=== PATIENT | female | born 1960 | race Caucasian/White ===

== ENCOUNTER 2016-11-02 14:54 | Emergency (ER) ==
[2016-11-02 15:05] VITALS: BP 117/64
--- NOTE | 2016-11-02 15:35 | PROVIDER DOCUMENTATION ---
HPI-Rash/Wound/ReCheck - General Chief Complaint: Suture/Staple Removal Stated Complaint: SUTURE REMOVAL Time Seen by Provider: 11/02/16 15:27 Source: patient Allergies/Adverse Reactions: Allergies Allergy/AdvReac Type Severity Reaction Status Date / Time morphine Allergy VOMITING Verified 07/01/16 10:01 Home Medications: Home Medication List Medication Instructions Recorded Confirmed Last Taken Type Aspirin/Caffeine [Bc Powder Packet] 1 each PO PRN PRN 07/01/16 07/01/16 05:00 History Dapagliflozin Propanediol [Farxiga] 10 mg PO DAILY 07/01/16 07/01/16 07/01/16 05 :00 History 10 Irbesartan/Hydrochlorothiazide 2 each PO DAILY 07/01/16 07/01/16 07/01/16 05:00 History [Avalide 150-12.5 mg Tablet] Omeprazole [Prilosec] 40 mg PO BID 07/01/16 07/01/16 07/01/16 05:00 History Cephalexin [Keflex] 500 mg PO Q6HR #28 capsule 10/26/16 Unknown Rx - History of Present Illness-Dermatology Nature of Presenting Problem: Pt is a 56 y/o F at the ER for removal of sutures place in her R thumb to repair a laceration. Pt states that she has had some continued numbness to the tip of her thumb but no decreased ROM. On arrival, pt is in no distress. Review of Systems - Adult - REVIEW OF SYSTEMS - ADULT Constitutional: reports: no symptoms reported. denies: chills, fatique Eyes: reports: no symptoms reported. denies: blurred vision, double vision Ears, Nose, Mouth & Throat: reports: no symptoms reported. denies: ear pain, nose pain, throat pain Cardiovascular: reports: no symptoms reported. denies: chest pain, orthopnea Respiratory: reports: no symptoms reported. denies: cough, shortness of breath Gastrointestinal: reports: no symptoms reported. denies: abdominal pain, nausea Genitourinary: reports: no symptoms reported. denies: dysuria, hematuria Musculoskeletal: reports: no symptoms reported. denies: joint pain, joint swelling Integumentary: reports: no symptoms reported. denies: hives, itching, rash Neurological: reports: numbness (tip of R thumb). denies: paresthesia Psychiatric: reports: no symptoms reported. denies: anxiety, emotional problems Endocrine: reports: no symptoms reported. denies: cold intolerance, heat intolerance Hematologic/Lymphatic: reports: no symptoms reported. denies: low blood count, prolonged bleeding Allergic/Immunologic: reports: no symptoms reported. denies: food allergy, frequent infections All Other Systems: Reviewed and Negative Past History - Adult - PAST MEDICAL HISTORY-ADULT Review of Records: reports: Old Records Reviewed, Nursing Assessment Review, Medications Reviewed, Social history reviewed & non-contributory. Major Childhood Illnesses: reports: denies history Cardiovascular: reports: HTN, hyperlipidemia. denies: OK, palpitations Respiratory: reports: denies history Gastrointestinal: reports: GERD Obstetrical/Gynecological: reports: denies history Genitourinary: reports: denies history Musculoskeletal: reports: denies history Neurological: reports: denies history Psychiatric: reports: denies history Endocrine/Immune: reports: Diabetes Other Conditions: reports: denies history - IMMUNIZATION STATUS Childhood Immunizations: See Nurse Assessment Flu Vaccine: See Nurse Assessment - FAMILY HISTORY Family History: CAD over 55 yo, CAD under 55yo, CVA/TIA, HTN - SOCIAL HISTORY Smoking: denies Substance Use: none/never Alcohol Use Frequency: never Living Situation: family Physical Exam-General - PHYSICAL EXAM-ADULT Initial Vital Signs Reviewed: Yes - CONSTITUTIONAL General Appearance: appears well, alert, no apparent distress - EYES Eyes: PERRL/EOMI, pink conjunctivae - HEAD, EARS, NOSE, MOUTH & THROAT HENMT: normocephalic/atraumatic, moist mucous membranes - NECK Neck: non-tender - RESPIRATORY Respiratory: chest non-tender, lungs clear, normal breath sounds - CARDIOVASCULAR Cardiovascular: normal peripheral pulses - CHEST (BREASTS) Chest/Breast: deferred - GASTROINTESTINAL (ABDOMEN) Abdominal Exam: normal bowel sounds, non tender, soft - GENITOURINARY Female Genitalia/Pelvic Exam: deferred - MUSCULOSKELETAL Extremity: tenderness (mild tenderness on palpation to R thumb, full ROM, well healed laceration sutures intact.) Progress - PLAN OF CARE/RESULTS Progress/Plan/Lab Results: Vital Signs - 24 hr 11/02/16 15:04 Temperature 97.9 F Pulse Rate 79 Respiratory 18 Rate Blood Pressure 117/64 O2 Sat by Pulse 99 Oximetry SUTURES REMOVED WITHOUT DIFFICULTY Departure - Departure Time of Disposition Order: 15:35 DIAGNOSIS: Visit for suture removal Disposition: HOME 01 Certified Medical Emergency: Emergent Condition: Stable Additional Instructions: ED Follow Up Instructions: You have been treated by a care provider in the Emergency Department. These instructions are being provided to you so you can have an understanding of how to care for yourself upon discharge. Upon discharge from the Emergency Department, you are responsible for making arrangements for follow-up care by a physician of your choice. Take all prescribed medications as directed. Return to the Emergency Department immediately for any new or worsening symptoms. You may call the Physician Referral phone number at [phone] to obtain a list of Physicians who are taking new patients. Referrals: Elvin Dey MD [Primary Care Provider] - Call for Appoint. -2 week Tiana Fortune MD [STAFF PHYSICIAN] - Attestation - Physician/ KARLOS Attestation Patient care was provided by Advanced Practice Provider:: Yes Advanced Practice Provider:: Yo Kim Advanced Practice Provider documentation review:: The Mid-level provider documentation, treatment plan and medical decision making was reviewed by the physician who agrees with all treatment and medical decision making by the MLP.
== END 2016-11-02 16:03 | disposition home or self-care (01) ==
LOC: ED 14:54
DX: Z48.02 Encounter for removal of sutures (principal); S61.011A Laceration without foreign body of right thumb without damage to nail, initial encounter; R20.0 Anesthesia of skin; I10 Essential (primary) hypertension; E78.5 Hyperlipidemia, unspecified; K21.9 Gastro-esophageal reflux disease without esophagitis; E11.9 Type 2 diabetes mellitus without complications; Z82.49 Family history of ischemic heart disease and other diseases of the circulatory system; Z82.3 Family history of stroke; Z79.899 Other long term (current) drug therapy

== ENCOUNTER 2019-01-30 13:13 | Inpatient (IN) ==
--- NOTE | 2019-01-30 13:46 | Diag Imaging Result Doc PS360 ---
EXAM: CHEST-2 VIEWS HISTORY: cough/SOB TECHNIQUE: Chest two views COMPARISON: 12/13/2017 FINDINGS: The lungs are well expanded. The heart is not enlarged. The vessels are not distended. There are right lower lobe infiltrates. No pleural effusions. IMPRESSION: Right lower lobe pneumonia Electronically signed by Cory Mcclellan 01/30/2019 1:44 PM
[2019-01-30] MEDS ORDERED: ROCEPHIN 2 GM in NS 50 ML IV ONE (13:47)
[2019-01-30] MEDS ORDERED: DUONEB (A & A) INH ONE (13:47)
[2019-01-30] MEDS ORDERED: ZITHROMAX 500 MG/NS 500 MG/250 ML IVPB IV ONE (13:47)
[2019-01-30] MEDS ORDERED: DUONEB (A & A) INH PRN (14:39)
[2019-01-30 14:42] LABS: BASO# 0.09 X1000 (0.0-0.2); BASO% 0.8 % (0.0-0.8); EOS% 1.7 % (0.0-10.0); HEMATOCRIT 43.4 % (37.0-47.0); HEMOGLOBIN 14.6 g/dL (12.0-16.0); IMM GRAN# 0.05 X1000 (0.0-0.04); IMM GRAN% 0.4 % (0.0-0.5); LYMPH# 2.79 X1000 (1.2-3.4); LYMPH% 24.2 % (20.5-51.1); MCHC 33.6 g/dL (33-37); MCV 92.1 FL (81-99); MONO# 0.81 X1000 (0.11-0.59); MPV 9.6 FL (7.4-10.4); NEUT# 7.61 X1000 (1.4-6.5); NEUT% 65.9 % (42.2-75.2); PLT 238 X1000 (130-400); RBC 4.71 XMIL (4.2-5.4); RDW 14.1 % (11.5-14.5); WBC 11.55 X1000 (4.8-10.8)
[2019-01-30 14:45] LABS: INR 0.85
[2019-01-30] MEDS ORDERED: SOLU-MEDROL IV SCH (14:45)
[2019-01-30 14:46] LABS: PTT 27.7 Seconds (22.3-41.8)
[2019-01-30 14:53] LABS: AGAP 16; ALBUMIN 4.3 g/dL (3.5-5.0); ALKALINE PHOSPHATASE 61 U/L (32-104); BUN 20 mg/dL (8-22); CALCIUM 9.2 mg/dL (8.8-10.2); CHLORIDE 102 mmol/L (98-107); COSMO 285; CREATININE 0.7 mg/dL (0.5-0.9); ESTIMATED GFR > 60; GLUCOSE 84 mg/dL (70-104); GOT 14 U/L (10-30); GPT 17 U/L (10-36); SODIUM 142 mmol/L (136-145); TCO2 24 mmol/L (25-35); TOTAL PROTEIN 7.4 g/dL (6.3-8.3)
[2019-01-30] MEDS ORDERED: ZITHROMAX 500 MG/NS 500 MG/250 ML IVPB ONE (14:54)
--- NOTE | 2019-01-30 15:47 | EKG Report ---
Test Performed on : 01/30/2019 2:33:25 PM Test Reason : cp Blood Pressure : / mmHG Vent. Rate : 068 BPM Atrial Rate : 068 BPM P-R Int : 142 ms QRS Dur : 092 ms QT Int : 410 ms P-R-T Axes : 051 -16 000 degrees QTc Int : 435 ms Normal sinus rhythm. Nonspecific T wave abnormality Abnormal ECG When compared with ECG of 06-DEC-2017 10:20, No significant change was found Unconfirmed Result
[2019-01-30] MEDS: HUMALOG (PARKWAY) SUBQ SCH ×2 (16:29→21:17)
[2019-01-30] MEDS: SOLU-MEDROL IV SCH (16:33)
[2019-01-30] MEDS: TYLENOL PO PRN ×2 (16:33→22:20)
[2019-01-30] MEDS: DUONEB (A & A) INH SCH ×3 (17:31→22:59)
--- NOTE | 2019-01-30 18:54 | HISTORY AND PHYSICAL ---
PRIMARY CARE PHYSICIAN: Dr. Elvin Dey. CHIEF COMPLAINT: Shortness of breath with fever. HISTORY OF PRESENT ILLNESS: This is a 58-year-old female who presented to the emergency room complaining of cough, fever, congestion, and headache for 3 days. She states she was evaluated in an outpatient clinic and given antibiotics and steroids, although symptoms have increased. Chest x-ray revealed right lower lobe pneumonia and she is being admitted for such. PAST MEDICAL HISTORY: 1. Diabetes mellitus. 2. Gastroesophageal reflux disease. 3. Hypertension. PAST SURGICAL HISTORY: 1. Appendectomy. 2. Cholecystectomy. 3. Hysterectomy. 4. Tubal ligation. SOCIAL HISTORY: She smokes about a half pack to a pack a day. She denies alcohol or illicit drug use. ALLERGIES: Morphine. HOME MEDICATIONS: A list will be obtained by the nursing staff and once verified, will be restarted as appropriate. REVIEW OF SYSTEMS: Discussed with patient with pertinent positives stated in the HPI. She denied any syncope, dizziness, any chest pain or palpitations, nausea, vomiting, diarrhea, constipation, any black or bloody vomitus or stools, any hematuria, dysuria, frequency, urgency. PHYSICAL EXAMINATION: GENERAL: This is a 58-year-old female who is lying on the stretcher in the emergency room in no distress. VITAL SIGNS: Blood pressure is 110/70 with a heart rate of 72, respirations are 20, temperature is 98.1 degrees oral, with room air saturations 97%. EYES: Pupils are equal, round, and react to light. EOMs are intact. Sclerae are anicteric. HEENT: Head is normocephalic, atraumatic. Mucous membranes are moist. NECK: Supple with trachea midline. CARDIOVASCULAR: Regular rate and rhythm. S1, S2 appreciated. Calves are nontender bilateral with peripheral pulses palpable x4 extremities. PULMONARY: Breath sounds with scattered rhonchi throughout that do not clear to cough. Chest rises and falls symmetrically with respiration. Chest wall is nontender to palpation. GASTROINTESTINAL: Abdomen is soft, nontender, nondistended with bowel sounds in all 4 quadrants. NEUROLOGIC: She is alert and oriented x3. SKIN: Warm and dry. LABS: WBC is 11.5 with hemoglobin 14.6, hematocrit 43.4, and platelets of 238,000. Sodium is 142, potassium 4, BUN 20, creatinine 0.7 with a glucose of 84. Chest x-ray revealed right lower lobe pneumonia. Blood cultures are pending. ASSESSMENT: 1. Right lower lobe pneumonia. Failed outpatient treatment. 2. Shortness of breath. 3. Leukocytosis, secondary to #1. 4. Diabetes mellitus. 5. Gastroesophageal reflux disease. 6. Hypertension. PLAN: 1. The patient will be admitted to the hospital, placed on the medical-surgical floor, placed on telemetry. 2. Will give supplemental oxygen as needed. 3. Give DuoNeb q.4 hours with q.2 hours p.r.n. 4. Will give low-dose steroids. 5. Antibiotic coverage of Rocephin and azithromycin and any further antibiotics will be culture driven. 6. We will identify her home medications and continue these as appropriate. 7. Do patterned blood glucose with sliding scale insulin. 8. Check CBC and CMP in the morning. 9. Further treatments pending hospital course. Dictated by RAFFY Garcia for Juan Carlos Santos MD cc: RAFFY Garcia MD
--- NOTE | 2019-01-30 20:40 | HISTORY AND PHYSICAL ---
ADDENDUM: Patient was seen and examined by myself. Full note dictated and discussed with nurse practitioner. Patient presented to the hospital with increased cough, congestion, work of breathing for the last 3 to 4 days. She has been on antibiotics and steroids, and this did not improve. Therefore, we will admit her to the hospital and treat her for a failed outpatient pneumonia, and will follow. cc: Juan Carlos Santos MD
[2019-01-31] MEDS: SOLU-MEDROL IV SCH ×3 (00:06→16:25)
[2019-01-31] MEDS: DUONEB (A & A) INH SCH ×6 (03:03→23:35)
[2019-01-31 06:10] LABS: AGAP 18; ALKALINE PHOSPHATASE 60 U/L (32-104); BUN 19 mg/dL (8-22); CHLORIDE 100 mmol/L (98-107); COSMO 282; CREATININE 0.6 mg/dL (0.5-0.9); ESTIMATED GFR > 60; GLUCOSE 178 mg/dL (70-104); GOT 12 U/L (10-30); GPT 17 U/L (10-36); POTASSIUM 3.7 mmol/L (3.5-5.1); SODIUM 138 mmol/L (136-145); TCO2 21 mmol/L (25-35); TOTAL BILIRUBIN < 0.15 mg/dL (0.20-1.00); TOTAL PROTEIN 7.3 g/dL (6.3-8.3)
[2019-01-31 06:11] LABS: BASO# 0.01 X1000 (0.0-0.2); BASO% 0.1 % (0.0-0.8); HEMATOCRIT 40.1 % (37.0-47.0); HEMOGLOBIN 13.3 g/dL (12.0-16.0); IMM GRAN# 0.03 X1000 (0.0-0.04); IMM GRAN% 0.3 % (0.0-0.5); LYMPH# 0.97 X1000 (1.2-3.4); LYMPH% 9.5 % (20.5-51.1); MCH 30.3 PG (27-31); MCHC 33.2 g/dL (33-37); MCV 91.3 FL (81-99); MONO# 0.16 X1000 (0.11-0.59); MONO% 1.6 % (1.7-9.3); MPV 9.5 FL (7.4-10.4); NEUT# 9.09 X1000 (1.4-6.5); NEUT% 88.5 % (42.2-75.2); PLT 266 X1000 (130-400); RBC 4.39 XMIL (4.2-5.4); WBC 10.26 X1000 (4.8-10.8)
[2019-01-31 06:42] LABS: LYMPHS 10 % (21-51); MONO 4 % (1-9); SEGS 86 % (42-75)
[2019-01-31] MEDS: HUMALOG (PARKWAY) SUBQ SCH ×4 (07:17→20:44)
[2019-01-31] MEDS: ZITHROMAX PO SCH ×2 (07:46→09:26)
[2019-01-31] MEDS: TESSALON PO SCH ×2 (09:44→16:25)
[2019-01-31] MEDS: PRILOSEC PO SCH ×2 (09:44→16:26)
[2019-01-31] MEDS: TYLENOL PO PRN (11:27)
[2019-01-31] MEDS: NON-FORMULARY MED (Dapagliflozin Propanediol [Farxiga] 0 MG) PO SCH (11:50)
[2019-01-31] MEDS: ROCEPHIN 1 GM in NS 50 ML IV SCH (13:08)
--- NOTE | 2019-01-31 21:25 | PROGRESS NOTE ---
DATE: 01/31/2019 SUBJECTIVE: Patient notes overall she is starting to breathe a little bit easier. Less cough, less congestion. Denies any fevers, chills. Denies any chest pain or palpitations. OBJECTIVE:/PHYSICAL EXAM: Vital Signs: Temperature 97.6, pulse 81, respiratory rate 18, BP 100/41. General: Patient is awake, currently in no distress. HEENT: Normocephalic. Neck: Supple. Cardiovascular: Regular rate. No murmurs. Chest: Decreased, but actually improved from yesterday. Positive wheezing, also improved from yesterday. No crackles. Abdomen: Soft, nondistended. Extremities: Moves all extremities. Neurologic: No focal changes. ASSESSMENT: 1. Right lower lobe pneumonia. 2. Shortness of breath. 3. Leukocytosis. 4. Diabetes. 5. Reflux. 6. Hypertension. 7. Chronic tobacco abuse. PLAN: We will continue patient in the hospital and continue antibiotics and breathing treatments. We will continue steroids and follow her blood sugars. We discussed with her again the importance of stopping smoking. cc: Juan Carlos Santos MD
[2019-02-01] MEDS: TESSALON PO SCH ×3 (00:05→16:58)
[2019-02-01] MEDS: SOLU-MEDROL IV SCH ×3 (00:05→20:06)
[2019-02-01] MEDS: TYLENOL PO PRN ×3 (00:29→20:06)
[2019-02-01] MEDS: DUONEB (A & A) INH SCH ×6 (03:20→23:27)
[2019-02-01] MEDS: PRILOSEC PO SCH ×2 (06:44→15:08)
[2019-02-01] MEDS: HUMALOG (PARKWAY) SUBQ SCH ×4 (06:45→20:11)
[2019-02-01] MEDS: ZITHROMAX PO SCH (07:59)
[2019-02-01] MEDS: NON-FORMULARY MED (Dapagliflozin Propanediol [Farxiga] 0 MG) PO SCH (07:59)
[2019-02-01] MEDS: ROCEPHIN 1 GM in NS 50 ML IV SCH (15:08)
--- NOTE | 2019-02-01 15:37 | PROGRESS NOTE ---
DATE: 02/01/2019 SUBJECTIVE: Patient notes that she is starting to breathe better, having less cough, less wheezing, and less shortness of breath, but still present and still not back to her baseline OBJECTIVE: HEENT: Normocephalic. Neck: Supple. CV: Regular rate. Chest: Much better air movement, still wheezing. Denies any pain with breathing. Abdomen: Soft and nondistended. Extremities: Moves all extremities. ASSESSMENT: 1. Chronic obstructive pulmonary disease with exacerbation. 2. Right lower lobe pneumonia. 3. Hypoxic respiratory failure, acute. 4. Leukocytosis. 5. Hypertension. PLAN: We will continue patient in the hospital. Continue breathing treatments. Antibiotics. Oxygen. We will follow. cc: Juan Carlos Santos MD
[2019-02-02] MEDS: TESSALON PO SCH ×3 (00:13→16:34)
[2019-02-02] MEDS: DUONEB (A & A) INH SCH ×6 (03:14→22:58)
[2019-02-02 05:39] LABS: HEMATOCRIT 38.1 % (37.0-47.0); HEMOGLOBIN 12.7 g/dL (12.0-16.0); MCH 30.5 PG (27-31); MCHC 33.3 g/dL (33-37); MCV 91.6 FL (81-99); MPV 9.4 FL (7.4-10.4); RBC 4.16 XMIL (4.2-5.4); RDW 14.1 % (11.5-14.5); WBC 12.37 X1000 (4.8-10.8)
[2019-02-02 06:03] LABS: AGAP 11; ALBUMIN 3.7 g/dL (3.5-5.0); BUN 26 mg/dL (8-22); CALCIUM 8.8 mg/dL (8.8-10.2); CHLORIDE 105 mmol/L (98-107); COSMO 287; CREATININE 0.7 mg/dL (0.5-0.9); ESTIMATED GFR > 60; GLUCOSE 147 mg/dL (70-104); POTASSIUM 4.7 mmol/L (3.5-5.1); SODIUM 140 mmol/L (136-145); TCO2 24 mmol/L (25-35); TOTAL PROTEIN 6.7 g/dL (6.3-8.3)
[2019-02-02 06:04] LABS: ALKALINE PHOSPHATASE 48 U/L (32-104); GOT 17 U/L (10-30); GPT 31 U/L (10-36); MAGNESIUM 2.3 mg/dL (1.5-2.7)
[2019-02-02] MEDS: PRILOSEC PO SCH ×2 (06:44→16:34)
[2019-02-02] MEDS: HUMALOG (PARKWAY) SUBQ SCH ×4 (06:45→23:52)
[2019-02-02] MEDS: ZITHROMAX PO SCH (08:18)
[2019-02-02] MEDS: SOLU-MEDROL IV SCH ×2 (08:19→20:32)
[2019-02-02] MEDS: NON-FORMULARY MED PO SCH (08:20)
--- NOTE | 2019-02-02 14:12 | PROGRESS NOTE ---
DATE: 02/02/2019 SUBJECTIVE: Patient notes that she was feeling a little bit better and she attempted to take a shower. Since then she has been exhausted, much more increased work of breathing and shortness of breath. She has also started coughing. She was able to cough up some sputum that has been sent for analysis. OBJECTIVE: Vital signs: Temperature 97.1, pulse 65, respiratory 20, BP 119/62. General: Patient is a very pleasant female who is currently in no respiratory distress. HEENT: Normocephalic. Neck: Supple. Cardiovascular: Regular rate. Chest: Decreased but equal breath sounds. Minimally labored. Positive wheezing, more so than yesterday. Abdomen: Soft, nondistended. Extremities: Moves all extremities. ASSESSMENT: 1. Chronic obstructive pulmonary disease with exacerbation. 2. Hypoxic respiratory failure. 3. Right lower lobe pneumonia. 4. Diabetes. 5. Reflux. 6. Hypertension. PLAN: We will continue patient in the hospital. Continue to follow. Further orders as needed. We will continue breathing treatments and oxygen. cc: Juan Carlos Santos MD
[2019-02-02] MEDS: ROCEPHIN 1 GM in NS 50 ML IV SCH (14:38)
[2019-02-02] MEDS: MIRALAX PO SCH (17:53)
[2019-02-02] MEDS: SEROQUEL PO PRN (20:34)
[2019-02-03] MEDS: DUONEB (A & A) INH SCH ×6 (02:59→23:00)
[2019-02-03] MEDS: TESSALON PO SCH ×3 (04:59→16:25)
[2019-02-03] MEDS: PRILOSEC PO SCH ×3 (05:10→16:26)
[2019-02-03] MEDS: HUMALOG (PARKWAY) SUBQ SCH ×4 (06:07→21:59)
[2019-02-03] MEDS: SOLU-MEDROL IV SCH ×2 (08:02→21:40)
[2019-02-03] MEDS: ZITHROMAX PO SCH (09:59)
[2019-02-03] MEDS: MIRALAX PO SCH (09:59)
[2019-02-03] MEDS: NON-FORMULARY MED PO SCH (09:59)
--- NOTE | 2019-02-03 11:50 | PROGRESS NOTE ---
DATE: 02/03/2019 SUBJECTIVE: The patient reports feeling still mildly short of breath. She is just out of the bathroom after having a shower and she reports feeling very short of breath. She reports that she continues to smoke half a pack per day. Denies any other complaints. OBJECTIVE: Vital Signs: Temperature 97.6 degrees, heart rate 66, respiratory rate 20, blood pressure 122/62, O2 saturation 95% on room air. General Examination: This is a 58-year-old, female lying in bed, in no acute distress. Cardiovascular Examination: S1 and S2 heard. No murmurs, gallops, or rubs. Regular rate and rhythm. Respiratory Examination: Decreased breath sounds globally with wheezing noted in both pulmonary bases. The patient is not using any accessory muscles or having work of breathing. Abdomen: Soft, nontender to palpation. Bowel sounds present. No organomegaly. Extremities: No clubbing, cyanosis, or edema. Peripheral pulses present in both legs. Neurological Examination: The patient is alert and oriented x3. Moves 4 extremities. Laboratory Data: Reviewed. ASSESSMENT AND PLAN: 1. Acute hypoxemic respiratory failure secondary to chronic obstructive pulmonary disease exacerbation. Unfortunately, this patient is improving slowly. The patient, unfortunately, continues to smoke. At this point, the patient is on DuoNeb every 4 hours as scheduled. We are going to add Brovana to her current treatment. We will see if that helps. She is also presently on room air. We will continue to monitor. 2. Right lower lobe pneumonia. Patient is on azithromycin, ceftriaxone, and methylprednisolone 40 mg intravenous every 12 hours. We will continue with the same management. 3. Diabetes mellitus type 2. We will continue with Accu-Chek before meals and also at bedtime, and sliding scale insulin as well. 4. Hypertension. Blood pressure is under control. We will continue with the same management. 5. Gastroesophageal reflux disease. We will continue with omeprazole. 6. Disposition. We will continue with the current treatment. We will discharge her whenever she is breathing better. Because of suspicion for pulmonary embolism, we are going to order a CT angiogram of the chest. cc: Edgar Small MD
--- NOTE | 2019-02-03 12:28 | Diag Imaging Result Doc PS360 ---
EXAM: CT ANGIOGRAM PULMONARY ARTERIES 02/03/2019 HISTORY: suspected PE TECHNIQUE: This exam was performed using automated exposure control, adjustment of mA or kV according to patient size, and/or use of iterative reconstruction technique. COMMENT: There are no previous studies available for comparison. 3-D MIPS were performed. There are no filling defects in the pulmonary arteries. The aorta is normal in caliber and there is no evidence of dissection. There are no abnormal fluid collections. There is a fair amount of stool in the visualized portion of the colon. There is a small splenule. There are granulomata in the spleen. There are calcified granulomata in the left lower lobe. There are some spondylotic changes in the thoracic spine. There are opacities present in the costophrenic sulcus of the left lower lobe and patchy opacities in both lower lobes generally as well as the inferior portion of the lingula. This may represent atelectasis and/or pneumonia. IMPRESSION: Bibasilar atelectasis versus pneumonia. No evidence of pulmonary emboli. Electronically signed by Connor Hubbard 02/03/2019 12:26 PM
[2019-02-03] MEDS: ROCEPHIN 1 GM in NS 50 ML IV SCH (13:13)
[2019-02-03] MEDS: MOTRIN PO PRN ×2 (13:49→21:40)
[2019-02-03] MEDS: TYLENOL PO PRN (16:05)
[2019-02-03] MEDS: BROVANA NEB INH SCH (19:10)
[2019-02-03] MEDS: SEROQUEL PO PRN (21:40)
[2019-02-04] MEDS: TESSALON PO SCH ×2 (01:23→08:48)
[2019-02-04] MEDS: DUONEB (A & A) INH SCH ×3 (03:44→10:50)
[2019-02-04 05:42] VITALS: BP 107/59
[2019-02-04 06:34] LABS: BASO# 0.02 X1000 (0.0-0.2); BASO% 0.2 % (0.0-0.8); HEMATOCRIT 40.2 % (37.0-47.0); HEMOGLOBIN 13.2 g/dL (12.0-16.0); IMM GRAN# 0.16 X1000 (0.0-0.04); IMM GRAN% 1.6 % (0.0-0.5); LYMPH% 20.9 % (20.5-51.1); MCH 30.1 PG (27-31); MCHC 32.8 g/dL (33-37); MCV 91.6 FL (81-99); MONO# 0.45 X1000 (0.11-0.59); MONO% 4.5 % (1.7-9.3); MPV 9.4 FL (7.4-10.4); NEUT# 7.34 X1000 (1.4-6.5); NEUT% 72.8 % (42.2-75.2); PLT 289 X1000 (130-400); RBC 4.39 XMIL (4.2-5.4); RDW 14.2 % (11.5-14.5); WBC 10.07 X1000 (4.8-10.8)
[2019-02-04 06:54] LABS: AGAP 12; BUN 22 mg/dL (8-22); CALCIUM 9.1 mg/dL (8.8-10.2); CHLORIDE 104 mmol/L (98-107); COSMO 290; CREATININE 0.7 mg/dL (0.5-0.9); ESTIMATED GFR > 60; GLUCOSE 158 mg/dL (70-104); POTASSIUM 4.9 mmol/L (3.5-5.1); SODIUM 142 mmol/L (136-145); TCO2 26 mmol/L (25-35)
[2019-02-04] MEDS: HUMALOG (PARKWAY) SUBQ SCH ×2 (07:06→11:14)
[2019-02-04] MEDS: PRILOSEC PO SCH (07:13)
[2019-02-04] MEDS: BROVANA NEB INH SCH (07:35)
[2019-02-04] MEDS: MOTRIN PO PRN (08:46)
[2019-02-04] MEDS: MIRALAX PO SCH (08:47)
[2019-02-04] MEDS: SOLU-MEDROL IV SCH (08:47)
[2019-02-04] MEDS: NON-FORMULARY MED PO SCH (08:47)
[2019-02-04] MEDS: ZITHROMAX PO SCH (08:47)
--- NOTE | 2019-02-04 18:54 | DISCHARGE SUMMARY ---
ADMISSION DATE: 01/30/2019 DISCHARGE DATE: 02/04/2019 PRIMARY CARE PHYSICIAN: Dr. Elvin Dey. ADMISSION DIAGNOSES: 1. Right lower lobe pneumonia with failed outpatient treatment. 2. Shortness of breath. 3. Leukocytosis secondary to #1. 4. Diabetes. 5. Gastroesophageal reflux disease. 6. Hypertension. DISCHARGE DIAGNOSES: 1. Acute hypoxemic respiratory failure secondary to chronic obstructive pulmonary disease exacerbation improved. 2. Right lower lobe pneumonia. 3. Diabetes. 4. Hypertension. 5. Gastroesophageal reflux disease. 6. Tobacco abuse. SUMMARY OF FINDINGS: This is a 58-year-old female who presented with complaints of cough, fever, congestion and headache for 3 days to the emergency room. States she was evaluated at an outpatient clinic, given antibiotics and steroids, but her symptoms continued to increase. Her chest x-ray revealed a right lower lobe pneumonia, so she was admitted, placed on IV antibiotics O2, low-dose steroids, DuoNeb q.4 hours routinely and q.2 p.r.n. We did a pulmonary arteriogram yesterday that showed bibasilar atelectasis versus pneumonia, but no evidence of pulmonary emboli. She was saturating 93% on room air. Her white blood cell count is normal today and it is now felt that she can safely be discharged home. DISCHARGE MEDICATIONS: DuoNeb q.4 hours p.r.n., benzonatate 200 mg p.o. t.i.d., Farxiga 10 mg p.o. daily, omeprazole 40 mg p.o. b.i.d., MiraLAX 17 g p.o. daily, hydrochlorothiazide 25 mg p.o. daily, prescription for Levaquin 750 mg p.o. daily #10 with no refills, losartan 100 mg p.o. daily, Medrol Dosepak to take as directed. FOLLOWUP: She will need to follow up with her primary care physician in the next 1 to 2 weeks and call the office for an appointment. TIME SPENT: This a 33 minute discharge. Dictated by RAFFY Walsh for Edgar Small MD Addendum: Patient seen and examined by myself. Agree with RAFFY note. It reflects my assessment and plan. Patient is being discharged from hospital in stable condition. Will be seen by PCP in a week. cc: RAFFY Walsh MD Michael Putman, MD [facility]
== END 2019-02-04 11:20 | disposition home or self-care (01) | DRG 193 ==
LOC: P.ED 13:13 → SUATTDRO 13:14 → P.MEDSURG 13:14
PROVIDERS: ATTEND Internal Medicine
CPT/HCPCS: 36415; 71020; 71046; 71275; 80048; 80053; 82948; 83605; 83735; 83880; 84484; 85025; 85027; 85610; 85730; 87040; 93005; 94640; 94667; 94668; 94761; 96365; 96375; 99285; A9270; J0456; J0696; J1815; J2920; Q9967; XXXXX